=== PATIENT | male | born 1995 | race Two or more races ===

== ENCOUNTER 2019-03-14 17:02 | Inpatient (IN) | payer OTHER ==
[~2019-03-14] VITALS: Ht 177.8 cm; Wt 112.9 kg
[2019-03-14 17:10] VITALS: Ht 177.8 cm; Wt 112.9 kg
--- NOTE | 2019-03-14 17:26 | NUR ---
PT COMES IN WITH C/O LEFT LOWER ABD PAIN INCREASINGLY WORSE IN THE LAST 2-3 DAYS AFTER EATING LOTS OF FAST FOOD RECENTLY. PT DOES REPORT THATHE'S HAD PANCREATITIS INTHE PAST. ABD ROUND/SOFT, TENDER TO LUQ, DENIES FEVERS, MILD NAUSEA AND VOMIT X1 TODAY. DENIES DYSURIA.
[2019-03-14 17:59] LABS: BASOPHIL % 0.4 % (0-2); PLATELET COUNT 323 x10^3mcL (130-400); RED CELL DISTRIBUTION WIDTH 14.4 % (11.5-14.5)
[2019-03-14 18:08] LABS: CALCIUM 8.5 mg/dL (8.5-10.1); CARBON DIOXIDE 22.7 mmol/L (21-32); CHLORIDE SERUM 101 mmol/L (98-107); CREATININE SERUM 1.1 mg/dL (0.7-1.3); GFR1 > 60 mL/min; POTASSIUM SERUM 4.2 mmol/L (3.5-5.1); SODIUM SERUM 139 mmol/L (136-145)
[2019-03-14 18:12] LABS: ALBUMIN 3.9 g/dL (3.4-5.0); ALKALINE PHOSPHATASE 97 U/L (46-116); BILIRUBIN TOTAL 0.6 mg/dL (0.20-1.00); LIPASE 1254 IU/L (73-393)
[2019-03-14 18:18] LABS: GLUCOSE SERUM 139 mg/dL (74-106)
[2019-03-14 18:35] LABS: AST/SGOT 79 U/L (15-37)
--- NOTE | 2019-03-14 18:54 | NUR ---
NO ACUTE CHNAGES IN CONDITION, PT LAYING IN BED, VSS. NO VOMTING WHILE HERE IN ER.
--- NOTE | 2019-03-14 19:00 | NUR ---
RECEIVED REPORT FROM SANTIAGO BARCENAS RN
--- NOTE | 2019-03-14 19:46 | NUR ---
PT. LAYING IN BED, AAOX4, ACUTE DISTRESS NOTED, PT. STATES THE MEDICATION HELPED A LOT. 6/10 PAIN SCALE, PENDING ADMIT, VSS, WILL MONITOR.
--- NOTE | 2019-03-14 19:57 | NUR ---
REPORT GIVEN TO ESDRAS HAIRSTON, UPSTAIRS
[2019-03-14 20:02] LABS: ALT/SGPT 75 U/L (16-63)
[2019-03-14 20:07] LABS: TOTAL PROTEIN, SERUM 8.6 g/dL (6.4-8.2)
[2019-03-14 20:40] VITALS: BP 142/83
--- NOTE | 2019-03-14 20:47 | NUR ---
RECEIVED PT FROM ER, PT ADMIT FOR PANCREATITIS, PT IS A/O X4, VERBAL RESPONSIVE, LUNG SOUND CLEAR BILATERAL, NO COUGH, NO SOB, PT DENY ANY CHEST PAIN OR DISCOMFORT, BOWEL SOUND PRESENT ALL 4 QUADRANTS, NO DISTENTION, PT C/O LEFT UPPER QUADRANT ABD PAIN 8/10, DENY ANY N/V AT THIS TIME, PEDAL PULSE PRESENT BOTH FEET, NO EDEMA IV AT LEFT AC, NO LEAKING, NO INFILTRATION. ALL ADLS ASSIST, ALL NEED MET, CALL LIGHT IN REACH, WILL CONTINUE TO MONITOR.
[2019-03-14 20:56] LABS: AMYLASE 290 U/L (25-115); CHOLESTEROL 335 mg/dL (<200); CHOLESTEROL/HDL RATIO 11.6; HDL CHOLESTEROL 29 mg/dL (40-60); TRIGLYCERIDES 2257 mg/dL (<150)
[2019-03-14 21:17] LABS: microscopic required? NO
[2019-03-14 21:24] LABS: urine erythrocyte NEGATIVE (NEGATIVE)
[2019-03-14 21:32] LABS: AMPHETAMINE QUAL UR NONE DETECTED (See below)
--- NOTE | 2019-03-14 21:47 | NUR ---
PT. C/O ABD PAIN. PAIN LEVEL WAS 8/10. PRN NORCO WAS GIVEN. PT. APPEARS MORE COMFORTABLE NOW. DOZING INTERMITTENTLY AT THIS TIME. WILL MONITOR. CALL LIGHT WITHIN REACH.
--- NOTE | 2019-03-15 00:34 | NUR ---
PRN MORPHINE GIVEN FOR C/O ABD. PAIN, 01/11. PT. STATED RELIEF WITH DECREASE OF PAIN DOWN TO 2-09/11. PT. RESTING COMFORTABLY AT THIS TIME. WILL MONITOR. CALL LIGHT WITHIN REACH.
[2019-03-15 05:58] VITALS: BP 120/70
--- NOTE | 2019-03-15 06:22 | NUR ---
PT. AWAKENED AND C/O ABD. PAIN, ACHING PER PT. PAIN LEVEL 7/10 PER PT. ORN MORPHINE GIVEN. NO C/O NAUSEA. IVF INFUSING WELL, SITE REMAINS INTACT. WILL ENDORSE PT. CARE TO INCOMING NURSE.
[2019-03-15 07:09] LABS: CALCIUM 8.1 mg/dL (8.5-10.1); CARBON DIOXIDE 26.1 mmol/L (21-32); CHLORIDE SERUM 105 mmol/L (98-107); GFR1 > 60 mL/min; GLUCOSE SERUM 108 mg/dL (74-106); LIPASE 796 IU/L (73-393); SODIUM SERUM 140 mmol/L (136-145)
[2019-03-15 07:10] LABS: AMYLASE 182 U/L (25-115)
[2019-03-15 07:14] LABS: BASOPHIL % 0.4 % (0-2); PLATELET COUNT 283 x10^3mcL (130-400); RED CELL DISTRIBUTION WIDTH 14.5 % (11.5-14.5)
--- NOTE | 2019-03-15 07:25 | NUR ---
RECEIVED PT IN NO ACUTE DISTRESS. SLEEPING BUT EASILY AROUSABLE. BREATHING EVEN AND UNLABORED ON RA. IVF INFUSING, NO REDNESS OR SWELLING TO IV SITE. APPEARS COMFORTABLE, NO PAIN NOTED. NPO EXCEPT MEDS. BED IN LOW POSITION, CALL LIGHT WITHIN REACH. WILL CONTINUE TO MONITOR.
[2019-03-15 08:40] VITALS: BP 130/69
--- NOTE | 2019-03-15 09:22 | NUR ---
PT RESTING IN BED USING HIS PHONE. REPORTS NO PAIN RELIEF FROM NORCO. PT STATED MORPHINE NOT HELPING EITHER. C/O MILD NAUSEA, REFUSED MEDICINE AT THIS TIME. DR. TRUONG NOTIFIED OF PT'S REQUEST FOR DIFFERENT PAIN MED. WILL CONTINUE TO MONITOR.
--- NOTE | 2019-03-15 10:41 | NUR ---
DR. WRIGHT AND MEDICAL TEAM AT BEDSIDE FOR ROUNDS. DR. TRUONG AND MEDICAL TEAM AWARE OF PT'S REQUEST FOR DIFFERENT PAIN MEDICINE. NO NEW ORDERS. WILL CONTINUE TO MONITOR.
--- NOTE | 2019-03-15 12:04 | NUR ---
DR. TRUONG AT BEDSIDE AND SPOKE WITH PT REGARDING PAIN MANAGEMENT. PT AGREED TO TAKE MORPHINE AT THIS TIME FOR ABD PAIN.
[2019-03-15 15:12] VITALS: BP 117/63
--- NOTE | 2019-03-15 18:32 | NUR ---
PT RESTING IN BED TALKING ON THE PHONE. NO ACUTE DISTRESS. C/O ABD PAIN, TOLERABLE AT THIS TIME. INFORMED PT HIS NEXT DOSE OF MORPHINE IS AFTER 8 PM, PT VERBALIZED UNDERSTANDING. IVF INFUSING, NO REDNESS OR SWELLING NOTED. NPO EXCEPT MEDS. BED IN LOW POSITION, CALL LIGHT WITHIN REACH. WILL ENDORSE TO ONCOMING SHIFT.
[2019-03-15 19:36] VITALS: BP 137/82
--- NOTE | 2019-03-15 20:14 | NUR ---
PATIENT COMPLAINED OF SHARP, ABDOMINAL PAIN, PAIN SCALE 7/10. MEDICATED WITH MORPHINE SULFATE 2 MG IVP ORDERED. WILL CONTINUE TO MONITOR.
--- NOTE | 2019-03-15 20:26 | NUR ---
PATIENT RECEIVED AWAKE, ALERT, ORIENTED X4 IN BED. RESPIRATION EVEN AND UNLABORED, ON ROOM AIR. ONGOING 0.9% NS AT 175 CC/HR INFUSING WELL AT THE LEFT ANTECUBITAL AREA. C/O SHARP ABDOMINAL PAIN, PAIN SCALE 7/10. MEDICATED ORDERED. ON NPO EXCEPT MEDICATIONS. LBM 03/14/2019. VOIDING FREELY WITHOUT DIFFICULTY. AMBULATORY. SKIN DRY AND INTACT. WILL CONTINUE TO MONITOR.
--- NOTE | 2019-03-15 22:06 | NUR ---
PATIENT STILL COMPLAINING OF LEFT UPPER QUADRANT, SHARP ABDOMINAL PAIN, PAIN SCALE 7/10. MEDICATED WITH NORCO 7.5/325 MG PO ORDERED. WILL CONTINUE TO MONITOR.
--- NOTE | 2019-03-16 00:25 | NUR ---
PATIENT STILL COMPLAINING OF LEFT UPPER QUADRANT, SHARP ABDOMINAL PAIN, PAIN SCALE 7/10. VITAL SIGNS STABLE. MORPHINE SULFATE 2 MG IVP GIVEN ORDERED. WILL CONTINUE TO MONITOR.
[2019-03-16 05:28] VITALS: BP 101/54
[2019-03-16 06:02] LABS: BASOPHIL % 0.5 % (0-2); PLATELET COUNT 259 x10^3mcL (130-400); RED CELL DISTRIBUTION WIDTH 14.5 % (11.5-14.5)
--- NOTE | 2019-03-16 06:19 | NUR ---
PATIENT RESTING IN BED. RESPIRATION EVEN AND UNLABORED, ON ROOM AIR. IV SITE NO SIGN OF INFILTRATION. ON NPO EXCEPT MEDS. ASSISTED WITH NEEDS. SAFETY OBSERVED. PLACED BED IN THE LOWEST POSITION. PLACED CALL LIGHT WITHIN REACH AT ALL TIMES.
--- NOTE | 2019-03-16 07:04 | NUR ---
RECEIVED PT FROM NURSE COORDINATOR NURSE. PT RESTING IN BED, AOX4, RESP E/U ON RA. PT REPORTED ABD PAIN RATED 6/10 BUT TOLERABLE, NO REQUEST FOR PAIN MEDS AT THIS TIME, COMFORT MEASURES IMPLEMENTED. IV TO LAC W/ NO SIGNS OF INFILTRATION, IVF INFUSING WELL. BED IN LOWEST POSITION AND CALL LIGHT WITHIN REACH. WILL CONTINUE TO MONITOR.
[2019-03-16 07:05] LABS: CALCIUM 8.5 mg/dL (8.5-10.1); CARBON DIOXIDE 25.4 mmol/L (21-32); CHLORIDE SERUM 104 mmol/L (98-107); GFR1 > 60 mL/min; GLUCOSE SERUM 90 mg/dL (74-106); PHOSPHOROUS 4.1 mg/dL (2.5-4.9); POTASSIUM SERUM 3.9 mmol/L (3.5-5.1); SODIUM SERUM 140 mmol/L (136-145)
[2019-03-16 08:14] VITALS: BP 120/68
--- NOTE | 2019-03-16 12:53 | NUR ---
PT IN BED HAVING LUNCH, AOX4, RESP E/U ON RA. PT STATED HE IS STILL HAVING DIFFICULTY EATING DUE TO ABD PAIN, RATED 5/10, NO REQUEST FOR PAIN MEDS AT THIS TIME. DENIES N/V. COMFORT MEASURES IMPLEMENTED. BED IN LOWEST POSITION AND CALL LIGHT WITHIN REACH. WILL CONTINUE TO MONITOR.
[2019-03-16 17:21] VITALS: BP 131/70
--- NOTE | 2019-03-16 18:06 | NUR ---
PT DONE W/ SHOWER. RESTING IN BED, AOX4, RESP E/U ON RA. ONLY ATE SMALL PORTION OF DINNER DUE TO ABD DISCOMFORT. REPORTS MILD PAIN BUT TOLERABLE, DENIES N/V. IV TO LAC W/ NO SIGNS OF INFILTRATION, IVF INFUSING WELL. BED IN LOWEST POSITION AND CALL LIGHT WITHIN REACH. WILL ENDORSE TO ONCOMING NURSE.
--- NOTE | 2019-03-16 19:21 | NUR ---
RECEIVED PT FROM PREVIOUS SHIFT. PT A/OX4. DENIES PAIN. DENIES SOB ON RA. IV PATENT, INFUSING WELL WITH NO S/S OF INFILTRATION. CALL LIGHT WITHIN REACH, BED IN LOW POSITION. WILL CONTINUE TO MONITOR.
[2019-03-16 19:54] VITALS: BP 143/87
--- NOTE | 2019-03-17 00:43 | NUR ---
PT RESTING IN NO ACUTE DISTRESS. RR EVEN AND UNLABORED. CALL LIGHT WITHIN REACH, BED IN LOW POSITION. WILL CONTINUE TO MONITOR.
[2019-03-17 05:09] VITALS: BP 123/69
[2019-03-17 06:37] LABS: CALCIUM 8.9 mg/dL (8.5-10.1); CARBON DIOXIDE 26.6 mmol/L (21-32); CHLORIDE SERUM 105 mmol/L (98-107); CREATININE SERUM 0.9 mg/dL (0.7-1.3); GFR1 > 60 mL/min; GLUCOSE SERUM 92 mg/dL (74-106); SODIUM SERUM 141 mmol/L (136-145)
--- NOTE | 2019-03-17 07:35 | NUR ---
RECEIVED PT FROM [facility]. PT AWAKE, ALERT A/OX4. PT ON ROOM AIR WITH NO RESP DISTRESS NOTED. IV ACCESS LAC INFUSING NS AT 175ML/HR CDI. PERIPHERAL PULSES PALPABLE, NO EDEMA NOTED. ACTIVE BS NOTED. NO APPARENT ISSUES WITH ELIMINATION PER PATIENT. PT AMBULATORY. PT DENIES PAIN. SAFETY MEASURES IN PLACE. BED LOW AND LOCKED. CALL LIGHT WITHIN REACH.
[2019-03-17 09:08] LABS: BASOPHIL % 0.4 % (0-2); PLATELET COUNT 281 x10^3mcL (130-400); RED CELL DISTRIBUTION WIDTH 14.3 % (11.5-14.5)
[2019-03-17 09:18] VITALS: BP 131/50
--- NOTE | 2019-03-17 10:44 | NUR ---
PT REPORTS HE NEEDS TO LEAVE NOW. PT INFORMED OF LEAVING AGAINST MEDICAL ADVICE. PAGED DR. FAIRCHILD.
--- NOTE | 2019-03-17 10:52 | NUR ---
PT SIGNED AMA PAPERS. PT STATES HE HAS TO LEAVE OR HE WILL LOSE EVERYTHING. HE CANNOT WAIT FOR THE DOCTORS TO ROUND. IV ACCESS REMOVED WITH CATHETER INTACT. NO REDNESS, BLEEDING OR SWELLING NOTED.
--- NOTE | 2019-03-17 11:03 | NUR ---
PT LEFT AMA.
== END 2019-03-17 11:00 | disposition left against medical advice (07) | DRG 440 ==
LOC: ED 17:02 → MU 19:08
PROVIDERS: ADMIT Internal Medicine
DX: K85.90 Acute pancreatitis without necrosis or infection, unspecified (principal); E78.5 Hyperlipidemia, unspecified; F11.10 Opioid abuse, uncomplicated; F12.10 Cannabis abuse, uncomplicated; E66.9 Obesity, unspecified; Z68.36 Body mass index [BMI] 36.0-36.9, adult; Z53.29 Procedure and treatment not carried out because of patient's decision for other reasons
CPT/HCPCS: C9113; G0378; G0480; J2270; J2405; J7030; Q0092